=== PATIENT | female | born 1955 | race Caucasian/White ===

== ENCOUNTER 2019-01-18 06:51 | Day surgery (SDC) | payer OTHER ==
[~2019-01-18 06:51] MED LIST: Dextrose 5%-0.45% NaCl 1,000 ML IV SCH; Midazolam 1 MG/ML 2 ML SDV ONE; Sodium Chloride 0.9% 10 ML Syringe FLUSH PRN; fentaNYL 100 MCG/2 ML SDV ONE
[2019-01-18] MEDS ORDERED: fentaNYL 100 MCG/2 ML SDV IV ONE ×3 (06:52→08:23)
[2019-01-18] MEDS ORDERED: Midazolam 1 MG/ML 2 ML SDV IV ONE ×6 (06:52→08:30)
[2019-01-18 11:17] VITALS: BP 126/62
--- NOTE | 2019-01-18 13:04 | OR ---
DATE: 01/18/2019 PROCEDURE: Total colonoscopy. INSTRUMENT USED: [id number]-H190DL Olympus video colonoscope. PREMEDICATIONS: Fentanyl 100 mcg intravenous, versed 3.5 mg intravenous, and nasal O2 cannula. The procedure was done under pulse oximetry, BP recording, and equipment monitor phototypesetting INDICATION: Screening colonoscopic examination is done for detection of any polypoid lesions and removal, endoscopic hemostasis therapy if needed. DESCRIPTION OF PROCEDURE: Initial rectal exam showed external hemorrhoidal tags. Rigid anoscopy showed small internal hemorrhoids without bleeding from them. The colonoscope was passed with ease up to the ileocecal area. Photographs were taken of the normal-appearing cecum identified by double-bulged ileocecal folds. No bleeding was noted from any of the visualized areas at the commencement of the examination. The bowel preparation was found to be adequate, [place] scale 2 in all the areas. No stricture. No vascular ectasia. No large isolated ulcerations seen. No evidence of diffuse inflammatory bowel disease in the form of friability, contact bleeding, or ulcerations. No polyp or tumor mass identified. Probing the proximal sides of folds and flexures using adequate distention and clearing of the stool material, withdrawal of the scope was made, cecum to rectum time over 6 minutes. No bleeding was noted from any of the visualized areas at the completion of examination. IMPRESSION: External and internal hemorrhoids. The patient tolerated the procedure well. [facility] /[id number]
== END 2019-01-18 10:42 | disposition home or self-care (01) ==
LOC: DL.ENDO 06:51
PROVIDERS: ATTEND Internal Medicine Gastroenterology
DX: Z12.11 Encounter for screening for malignant neoplasm of colon (principal)
CPT/HCPCS: 45378; J2250; J3010; J7042; G0121